=== PATIENT | female | born 1960 | race African-American/Black ===

== ENCOUNTER 2017-11-05 12:20 | Day surgery (SDC) | payer OTHER ==
[2017-11-05] MEDS ORDERED: methylPREDNISolone NA SUCC 40 MG/1 ML VIAL IVPB ONE (14:15)
[2017-11-05] MEDS ORDERED: EPINEPHrine/PF 1 MG/1 ML (1:1,000) AMPULE SQ PRN (14:23)
[2017-11-05] MEDS ORDERED: OMALIZUMAB 150 MG/VIAL ML SQ ONE (14:30)
[2017-11-05 17:21] VITALS: TEMP 98.7
[2017-11-05 17:22] VITALS: BP 135/75; PULSE 72
== END 2017-11-05 19:06 | disposition home or self-care (01) ==
LOC: J7W 12:20 → JINFUSION 12:20
PROVIDERS: ATTEND Internal Medicine
PROC: 3E013GC Introduction of Other Therapeutic Substance into Subcutaneous Tissue, Percutaneous Approach (ICD-10-PCS; principal; 2017-11-05)
DX: J45.50 Severe persistent asthma, uncomplicated (principal)
CPT/HCPCS: 96372; J2357

== ENCOUNTER 2017-12-02 12:05 | Day surgery (SDC) | payer OTHER ==
[2017-12-02] MEDS ORDERED: EPINEPHrine 1:1,000 0.3 MG/0.3 ML SYR IM PRN (12:42)
[2017-12-02] MEDS ORDERED: OMALIZUMAB 150 MG/VIAL ML SQ ONE (12:45)
[2017-12-02] MEDS ORDERED: methylPREDNISolone NA SUCC 40 MG/1 ML VIAL IVPB ONE (12:45)
[2017-12-02] MEDS ORDERED: EPINEPHrine/PF 1 MG/1 ML (1:1,000) AMPULE ONE (14:16)
[2017-12-02 17:21] VITALS: BP 139/77; PULSE 74; TEMP 99
== END 2017-12-02 15:00 | disposition home or self-care (01) ==
LOC: JINFUSION 12:05 → J7W 12:06 → JINFUSION 15:00
PROVIDERS: ATTEND Internal Medicine
PROC: 3E013GC Introduction of Other Therapeutic Substance into Subcutaneous Tissue, Percutaneous Approach (ICD-10-PCS; principal; 2017-12-02)
DX: J45.50 Severe persistent asthma, uncomplicated (principal)
CPT/HCPCS: 96372; J2357

== ENCOUNTER 2017-12-16 12:19 | Day surgery (SDC) | payer OTHER ==
[2017-12-16] MEDS ORDERED: EPINEPHrine/PF 1 MG/1 ML (1:1,000) AMPULE SQ PRN (12:58)
[2017-12-16] MEDS ORDERED: methylPREDNISolone NA SUCC 40 MG/1 ML VIAL IVPUSH ONE (13:00)
[2017-12-16] MEDS ORDERED: OMALIZUMAB 150 MG/VIAL ML SQ ONE (13:00)
[2017-12-16] MEDS ORDERED: FAMOTIDINE 20 MG/50 ML IVPB 20 MG/50 ML MG IVPB ONE (14:00)
[2017-12-16 14:42] VITALS: PULSE 77
[2017-12-16 15:13] VITALS: BP 132/70; TEMP 98.7
== END 2017-12-16 15:15 | disposition home or self-care (01) ==
LOC: JINFUSION 12:19 → J7W 12:20 → JINFUSION 15:15
PROVIDERS: ATTEND Internal Medicine
PROC: 3E013GC Introduction of Other Therapeutic Substance into Subcutaneous Tissue, Percutaneous Approach (ICD-10-PCS; principal; 2017-12-16)
DX: J45.50 Severe persistent asthma, uncomplicated (principal)
CPT/HCPCS: 96372; J2357

== ENCOUNTER 2018-01-05 11:16 | Day surgery (SDC) | payer OTHER ==
[2018-01-05] MEDS ORDERED: IBUPROFEN 200 MG TABLET PO PRN (13:23)
[2018-01-05] MEDS ORDERED: methylPREDNISolone NA SUCC 40 MG/1 ML VIAL IVPUSH ONE (13:30)
[2018-01-05] MEDS ORDERED: EPINEPHrine/PF 1 MG/1 ML (1:1,000) AMPULE SQ PRN (13:46)
[2018-01-05] MEDS ORDERED: OMALIZUMAB 150 MG/VIAL ML SQ ONE (14:00)
[2018-01-05 16:19] VITALS: TEMP 98.1
[2018-01-05 16:23] VITALS: BP 98/62; PULSE 95
== END 2018-01-05 15:15 | disposition home or self-care (01) ==
LOC: JINFUSION 11:16 → J7W 12:35 → JINFUSION 15:15
PROVIDERS: ATTEND Internal Medicine
PROC: 3E013GC Introduction of Other Therapeutic Substance into Subcutaneous Tissue, Percutaneous Approach (ICD-10-PCS; principal; 2018-01-05)
PROC: 3E0333Z Introduction of Anti-inflammatory into Peripheral Vein, Percutaneous Approach (ICD-10-PCS; 2018-01-05)
PROC: 3E033GC Introduction of Other Therapeutic Substance into Peripheral Vein, Percutaneous Approach (ICD-10-PCS; 2018-01-05)
DX: J45.50 Severe persistent asthma, uncomplicated (principal)
CPT/HCPCS: 96372; 96374; 96375; J2357

== ENCOUNTER 2018-01-19 13:16 | Day surgery (SDC) | payer OTHER ==
[2018-01-19] MEDS ORDERED: OMALIZUMAB 150 MG/VIAL ML SQ ONE (14:00)
[2018-01-19] MEDS ORDERED: EPINEPHrine/PF 1 MG/1 ML (1:1,000) AMPULE SQ PRN (14:02)
[2018-01-19] MEDS ORDERED: methylPREDNISolone NA SUCC 40 MG/1 ML VIAL IVPUSH ONE (14:15)
[2018-01-19 15:20] VITALS: BP 140/74; PULSE 76; TEMP 97.6
== END 2018-01-19 15:45 | disposition home or self-care (01) ==
LOC: JINFUSION 13:16 → J7W 13:18 → JINFUSION 15:45
PROVIDERS: ATTEND Internal Medicine
PROC: 3E033GC Introduction of Other Therapeutic Substance into Peripheral Vein, Percutaneous Approach (ICD-10-PCS; principal; 2018-01-19)
PROC: 3E013GC Introduction of Other Therapeutic Substance into Subcutaneous Tissue, Percutaneous Approach (ICD-10-PCS; 2018-01-19)
DX: J45.50 Severe persistent asthma, uncomplicated (principal)
CPT/HCPCS: 96360; 96365; 96372; J2357

== ENCOUNTER 2018-02-02 12:22 | Day surgery (SDC) | payer OTHER ==
[2018-02-02] MEDS ORDERED: EPINEPHrine/PF 1 MG/1 ML (1:1,000) AMPULE SQ PRN (12:44)
[2018-02-02] MEDS ORDERED: methylPREDNISolone NA SUCC 40 MG/1 ML VIAL IVPB ONE (12:45)
[2018-02-02] MEDS ORDERED: OMALIZUMAB 150 MG/VIAL ML SQ ONE (12:45)
[2018-02-02 15:02] VITALS: BP 127/79; PULSE 86; TEMP 98
== END 2018-02-02 15:05 | disposition home or self-care (01) ==
LOC: J7W 12:22 → JINFUSION 12:22
PROVIDERS: ATTEND Internal Medicine
PROC: 3E013GC Introduction of Other Therapeutic Substance into Subcutaneous Tissue, Percutaneous Approach (ICD-10-PCS; principal; 2018-02-02)
DX: J45.50 Severe persistent asthma, uncomplicated (principal)
CPT/HCPCS: 96372; J2357

== ENCOUNTER 2018-02-24 12:13 | Day surgery (SDC) | payer OTHER ==
[2018-02-24] MEDS ORDERED: EPINEPHrine/PF 1 MG/1 ML (1:1,000) AMPULE SQ PRN (12:45)
[2018-02-24] MEDS ORDERED: methylPREDNISolone NA SUCC 40 MG/1 ML VIAL IVPB ONE (12:45)
[2018-02-24] MEDS ORDERED: OMALIZUMAB 150 MG/VIAL ML SQ ONE (13:15)
[2018-02-24 19:06] VITALS: BP 122/75; PULSE 72; TEMP 98.7
== END 2018-02-24 15:10 | disposition home or self-care (01) ==
LOC: JINFUSION 12:13 → J7W 12:14 → JINFUSION 15:10
PROVIDERS: ATTEND Internal Medicine
PROC: 3E013GC Introduction of Other Therapeutic Substance into Subcutaneous Tissue, Percutaneous Approach (ICD-10-PCS; principal; 2018-02-24)
DX: J45.50 Severe persistent asthma, uncomplicated (principal)
CPT/HCPCS: 96372; J2357

== ENCOUNTER 2018-03-12 12:58 | Day surgery (SDC) | payer OTHER ==
[2018-03-12] MEDS ORDERED: EPINEPHrine 1:1,000 - 30 MG/30 ML VIAL SQ PRN (13:25)
[2018-03-12] MEDS ORDERED: methylPREDNISolone NA SUCC 40 MG/1 ML VIAL IVPB ONE (13:30)
[2018-03-12] MEDS ORDERED: OMALIZUMAB 150 MG/VIAL ML SQ ONE (13:30)
[2018-03-12 16:20] VITALS: TEMP 98.4
[2018-03-12 16:24] VITALS: BP 111/66; PULSE 73
== END 2018-03-12 15:40 | disposition home or self-care (01) ==
LOC: JINFUSION 12:58 → J7W 12:59 → JINFUSION 15:40
PROVIDERS: ATTEND Internal Medicine
PROC: 3E013GC Introduction of Other Therapeutic Substance into Subcutaneous Tissue, Percutaneous Approach (ICD-10-PCS; principal; 2018-03-12)
DX: J45.50 Severe persistent asthma, uncomplicated (principal)
CPT/HCPCS: 96365; 96372; J2357

== ENCOUNTER 2018-03-26 12:33 | Day surgery (SDC) | payer OTHER ==
[2018-03-26] MEDS ORDERED: OMALIZUMAB 150 MG/VIAL ML SQ ONE (13:30)
[2018-03-26] MEDS ORDERED: EPINEPHrine/PF 1 MG/1 ML (1:1,000) AMPULE SQ SCH (13:30)
[2018-03-26] MEDS ORDERED: methylPREDNISolone NA SUCC 40 MG/1 ML VIAL IVPB ONE (13:45)
[2018-03-26 15:36] VITALS: BP 126/77; PULSE 102; TEMP 97.9
== END 2018-03-26 15:39 | disposition home or self-care (01) ==
LOC: JINFUSION 12:33 → J7W 12:38 → JINFUSION 15:39
PROVIDERS: ATTEND Internal Medicine
PROC: 3E013GC Introduction of Other Therapeutic Substance into Subcutaneous Tissue, Percutaneous Approach (ICD-10-PCS; principal; 2018-03-26)
DX: J45.50 Severe persistent asthma, uncomplicated (principal)
CPT/HCPCS: 96372; J2357

== ENCOUNTER 2018-04-08 11:55 | Day surgery (SDC) | payer OTHER ==
[2018-04-08] MEDS ORDERED: methylPREDNISolone NA SUCC 40 MG/1 ML VIAL IVPB ONE (13:30)
[2018-04-08] MEDS ORDERED: OMALIZUMAB 150 MG/VIAL ML SQ ONE (13:30)
[2018-04-08] MEDS ORDERED: EPINEPHrine/PF 1 MG/1 ML (1:1,000) AMPULE SQ PRN (13:30)
[2018-04-08 17:49] VITALS: BP 151/80; PULSE 71; TEMP 97.8
== END 2018-04-08 15:15 | disposition home or self-care (01) ==
LOC: JINFUSION 11:55 → J7W 11:56 → JINFUSION 15:15
PROVIDERS: ATTEND Internal Medicine
PROC: 3E013GC Introduction of Other Therapeutic Substance into Subcutaneous Tissue, Percutaneous Approach (ICD-10-PCS; principal; 2018-04-08)
DX: J45.50 Severe persistent asthma, uncomplicated (principal)
CPT/HCPCS: 96372; J2357

== ENCOUNTER 2018-04-22 12:24 | Day surgery (SDC) | payer OTHER ==
[2018-04-22] MEDS ORDERED: EPINEPHrine 1:1,000 0.3 MG/0.3 ML SYR IM PRN (12:50)
[2018-04-22] MEDS ORDERED: OMALIZUMAB 150 MG/VIAL ML SQ ONE (13:00)
[2018-04-22] MEDS ORDERED: methylPREDNISolone NA SUCC 40 MG/1 ML VIAL IVPB ONE (13:00)
[2018-04-22 16:57] VITALS: TEMP 97.8
[2018-04-22 17:00] VITALS: BP 141/78; PULSE 88
== END 2018-04-22 14:00 | disposition home or self-care (01) ==
LOC: J7W 12:24 → JINFUSION 12:24
PROVIDERS: ATTEND Internal Medicine
PROC: 3E013GC Introduction of Other Therapeutic Substance into Subcutaneous Tissue, Percutaneous Approach (ICD-10-PCS; principal; 2018-04-22)
DX: J45.50 Severe persistent asthma, uncomplicated (principal)
CPT/HCPCS: 96372; J2357

== ENCOUNTER 2018-05-28 12:40 | Day surgery (SDC) | payer OTHER ==
[2018-05-28] MEDS ORDERED: EPINEPHrine/PF 1 MG/1 ML (1:1,000) AMPULE SQ SCH (13:15)
[2018-05-28] MEDS ORDERED: EPINEPHrine/PF 1 MG/1 ML (1:1,000) AMPULE SQ PRN (13:35)
[2018-05-28] MEDS ORDERED: methylPREDNISolone NA SUCC 40 MG/1 ML VIAL IVPB ONE (14:00)
[2018-05-28] MEDS ORDERED: OMALIZUMAB 150 MG/VIAL ML SQ SCH (14:00)
[2018-05-28 15:54] VITALS: TEMP 98.6
[2018-05-28 16:39] VITALS: BP 136/93; PULSE 93
== END 2018-05-28 16:10 | disposition home or self-care (01) ==
LOC: JINFUSION 12:40 → J7W 12:42 → JINFUSION 16:10
PROVIDERS: ATTEND Internal Medicine
PROC: 3E033GC Introduction of Other Therapeutic Substance into Peripheral Vein, Percutaneous Approach (ICD-10-PCS; principal; 2018-05-28)
PROC: 3E013GC Introduction of Other Therapeutic Substance into Subcutaneous Tissue, Percutaneous Approach (ICD-10-PCS; 2018-05-28)
DX: J45.50 Severe persistent asthma, uncomplicated (principal)
CPT/HCPCS: 96360; 96365; 96372; 96374; 96375; J2357

== ENCOUNTER 2018-06-18 10:38 | Day surgery (SDC) | payer OTHER ==
[2018-06-18] MEDS ORDERED: EPINEPHrine 1:1,000 0.3 MG/0.3 ML SYR IM PRN (11:09)
[2018-06-18] MEDS ORDERED: methylPREDNISolone NA SUCC 40 MG/1 ML VIAL IVPB ONE (11:15)
[2018-06-18] MEDS ORDERED: OMALIZUMAB 150 MG/VIAL ML SQ ONE (11:15)
[2018-06-18 12:27] VITALS: BP 147/77; PULSE 74; TEMP 98.4
== END 2018-06-18 12:30 | disposition home or self-care (01) ==
LOC: JINFUSION 10:38 → J7W 10:45 → JINFUSION 12:30
PROVIDERS: ATTEND Internal Medicine
PROC: 3E013GC Introduction of Other Therapeutic Substance into Subcutaneous Tissue, Percutaneous Approach (ICD-10-PCS; principal; 2018-06-18)
DX: J45.50 Severe persistent asthma, uncomplicated (principal)
CPT/HCPCS: 96372; J2357

== ENCOUNTER 2018-07-02 13:44 | Day surgery (SDC) | payer OTHER ==
[2018-07-02] MEDS ORDERED: EPINEPHrine/PF 1 MG/1 ML (1:1,000) AMPULE SQ ONE (15:00)
[2018-07-02] MEDS ORDERED: OMALIZUMAB 150 MG/VIAL ML SQ ONE (15:00)
[2018-07-02] MEDS ORDERED: methylPREDNISolone NA SUCC 40 MG/1 ML VIAL IVPB ONE (15:00)
[2018-07-02 15:36] VITALS: TEMP 97.3
[2018-07-02 15:56] VITALS: BP 128/75; PULSE 73
== END 2018-07-02 15:56 | disposition home or self-care (01) ==
LOC: JINFUSION 13:44 → J7W 13:44 → JINFUSION 15:56
PROVIDERS: ATTEND Internal Medicine
PROC: 3E013GC Introduction of Other Therapeutic Substance into Subcutaneous Tissue, Percutaneous Approach (ICD-10-PCS; principal; 2018-07-02)
PROC: 3E033GC Introduction of Other Therapeutic Substance into Peripheral Vein, Percutaneous Approach (ICD-10-PCS; 2018-07-02)
DX: J45.50 Severe persistent asthma, uncomplicated (principal)
CPT/HCPCS: 96365; 96372; 96374; J2357

== ENCOUNTER 2018-08-27 11:16 | Day surgery (SDC) | payer OTHER ==
[2018-08-27] MEDS ORDERED: EPINEPHrine 1:1,000 0.3 MG/0.3 ML SYR IM PRN (12:15)
[2018-08-27] MEDS ORDERED: methylPREDNISolone NA SUCC 40 MG/1 ML VIAL IVPB ONE (12:15)
[2018-08-27] MEDS ORDERED: OMALIZUMAB 150 MG/VIAL ML SQ ONE (12:20)
[2018-08-27 16:31] VITALS: BP 131/79; PULSE 76; TEMP 98.3
== END 2018-08-27 14:30 | disposition home or self-care (01) ==
LOC: JINFUSION 11:16 → J7W 11:17 → JINFUSION 14:30
PROVIDERS: ATTEND Internal Medicine
PROC: 3E033GC Introduction of Other Therapeutic Substance into Peripheral Vein, Percutaneous Approach (ICD-10-PCS; principal; 2018-08-27)
PROC: 3E013GC Introduction of Other Therapeutic Substance into Subcutaneous Tissue, Percutaneous Approach (ICD-10-PCS; 2018-08-27)
DX: J45.50 Severe persistent asthma, uncomplicated (principal)
CPT/HCPCS: 96365; 96372; J2357

== ENCOUNTER 2018-09-10 10:29 | Day surgery (SDC) | payer OTHER ==
[2018-09-10] MEDS ORDERED: EPINEPHrine 1:1,000 0.3 MG/0.3 ML SYR IM PRN (11:54)
[2018-09-10] MEDS ORDERED: OMALIZUMAB 150 MG/VIAL ML SQ ONE (12:00)
[2018-09-10] MEDS ORDERED: methylPREDNISolone NA SUCC 40 MG/1 ML VIAL IVPB ONE (12:00)
[2018-09-10] MEDS ORDERED: methylPREDNISolone NA SUCC 125 MG/2 ML VIAL ONE (14:19)
[2018-09-10] MEDS ORDERED: ACETAMINOPHEN 325 MG TABLET (FP) ONE (14:20)
[2018-09-10] MEDS ORDERED: PANTOPRAZOLE 40 MG TABLET (FP) PO ONE (14:30)
[2018-09-10] MEDS ORDERED: methylPREDNISolone NA SUCC 125 MG/2 ML VIAL IVPB ONE (14:30)
[2018-09-10 16:41] VITALS: BP 136/74; PULSE 80; TEMP 98
== END 2018-09-10 15:15 | disposition home or self-care (01) ==
LOC: JINFUSION 10:29 → J7W 10:37 → JINFUSION 15:15
PROVIDERS: ATTEND Internal Medicine
PROC: 3E033GC Introduction of Other Therapeutic Substance into Peripheral Vein, Percutaneous Approach (ICD-10-PCS; principal; 2018-09-10)
DX: J45.50 Severe persistent asthma, uncomplicated (principal); Z53.8 Procedure and treatment not carried out for other reasons
CPT/HCPCS: 96365; 96372

== ENCOUNTER 2018-11-19 12:20 | Day surgery (SDC) | payer OTHER ==
[~2018-11-19 12:20] MED LIST: EPINEPHrine/PF 1 MG/1 ML (1:1,000) AMPULE SQ PRN; OMALIZUMAB 150 MG/VIAL ML SQ ONE; methylPREDNISolone NA SUCC 40 MG/1 ML VIAL IVPB ONE
[2018-11-19 15:29] VITALS: TEMP 98.5
[2018-11-19 15:35] VITALS: BP 153/61; PULSE 72
== END 2018-11-19 15:00 | disposition home or self-care (01) ==
LOC: JINFUSION 12:20 → J7W 12:23 → JINFUSION 15:00
PROVIDERS: ATTEND Internal Medicine
PROC: 3E013GC Introduction of Other Therapeutic Substance into Subcutaneous Tissue, Percutaneous Approach (ICD-10-PCS; principal; 2018-11-19)
PROC: 3E033GC Introduction of Other Therapeutic Substance into Peripheral Vein, Percutaneous Approach (ICD-10-PCS; 2018-11-19)
PROC: 3E033GC Introduction of Other Therapeutic Substance into Peripheral Vein, Percutaneous Approach (ICD-10-PCS; 2018-11-19)
DX: J45.50 Severe persistent asthma, uncomplicated (principal)
CPT/HCPCS: 96360; 96365; 96368; 96372; J2357

== ENCOUNTER 2018-12-03 11:55 | Day surgery (SDC) | payer OTHER ==
[2018-12-03] MEDS ORDERED: OMALIZUMAB 150 MG/VIAL ML SQ SCH (13:45)
[2018-12-03] MEDS ORDERED: OMALIZUMAB 150 MG/VIAL ML SQ ONE (13:45)
[2018-12-03] MEDS ORDERED: methylPREDNISolone NA SUCC 40 MG/1 ML VIAL IVPB ONE (13:45)
[2018-12-03 15:35] VITALS: TEMP 98.5
[2018-12-03 16:55] VITALS: BP 135/72; PULSE 71
== END 2018-12-03 15:15 | disposition home or self-care (01) ==
LOC: JINFUSION 11:55 → J7W 11:56 → JINFUSION 15:15
PROVIDERS: ATTEND Internal Medicine
PROC: 3E013GC Introduction of Other Therapeutic Substance into Subcutaneous Tissue, Percutaneous Approach (ICD-10-PCS; principal; 2018-12-03)
DX: J45.50 Severe persistent asthma, uncomplicated (principal)
CPT/HCPCS: 96372; J2357

== ENCOUNTER 2018-12-17 11:54 | Day surgery (SDC) | payer OTHER ==
[2018-12-17] MEDS ORDERED: methylPREDNISolone NA SUCC 40 MG/1 ML VIAL IVPB ONE ×2 (13:00→13:15)
[2018-12-17] MEDS ORDERED: EPINEPHrine/PF 1 MG/1 ML (1:1,000) AMPULE SQ PRN (13:05)
[2018-12-17] MEDS ORDERED: OMALIZUMAB SQ ONE (13:15)
[2018-12-17 14:40] VITALS: TEMP 98.1
[2018-12-17 14:54] VITALS: BP 142/79; PULSE 76
== END 2018-12-17 14:10 | disposition home or self-care (01) ==
LOC: JINFUSION 11:54 → J7W 11:55 → JINFUSION 14:10
PROVIDERS: ATTEND Internal Medicine
PROC: 3E013GC Introduction of Other Therapeutic Substance into Subcutaneous Tissue, Percutaneous Approach (ICD-10-PCS; principal; 2018-12-17)
DX: J45.50 Severe persistent asthma, uncomplicated (principal)
CPT/HCPCS: 96372; J2357

== ENCOUNTER 2019-01-14 12:23 | Day surgery (SDC) | payer OTHER ==
[2019-01-14] MEDS ORDERED: EPINEPHrine 1:1,000 0.3 MG/0.3 ML SYR IM PRN (12:47)
[2019-01-14] MEDS ORDERED: OMALIZUMAB 150 MG/VIAL ML SQ ONE (13:00)
[2019-01-14] MEDS ORDERED: methylPREDNISolone NA SUCC 40 MG/1 ML VIAL IVPB ONE (13:00)
[2019-01-14] MEDS ORDERED: EPINEPHrine/PF 1 MG/1 ML (1:1,000) AMPULE IM PRN (13:02)
[2019-01-14 14:39] VITALS: BP 142/85; PULSE 76; TEMP 97.7
== END 2019-01-14 14:15 | disposition home or self-care (01) ==
LOC: JINFUSION 12:23 → J7W 12:26 → JINFUSION 14:15
PROVIDERS: ATTEND Internal Medicine
PROC: 3E0333Z Introduction of Anti-inflammatory into Peripheral Vein, Percutaneous Approach (ICD-10-PCS; principal; 2019-01-14)
PROC: 3E033GC Introduction of Other Therapeutic Substance into Peripheral Vein, Percutaneous Approach (ICD-10-PCS; 2019-01-14)
PROC: 3E013GC Introduction of Other Therapeutic Substance into Subcutaneous Tissue, Percutaneous Approach (ICD-10-PCS; 2019-01-14)
DX: J45.50 Severe persistent asthma, uncomplicated (principal)
CPT/HCPCS: 96365; 96372; 96374; 96375; J2357

== ENCOUNTER 2019-01-28 11:55 | Day surgery (SDC) | payer OTHER ==
[2019-01-28] MEDS ORDERED: EPINEPHrine/PF 1 MG/1 ML (1:1,000) AMPULE SQ PRN (13:20)
[2019-01-28] MEDS ORDERED: OMALIZUMAB SQ ONE (14:00)
[2019-01-28] MEDS ORDERED: methylPREDNISolone NA SUCC 40 MG/1 ML VIAL IVPUSH ONE (14:00)
[2019-01-28 15:10] VITALS: BP 136/76; PULSE 85; TEMP 98.9
== END 2019-01-28 14:40 | disposition home or self-care (01) ==
LOC: JINFUSION 11:55 → J7W 12:52 → JINFUSION 14:40
PROVIDERS: ATTEND Internal Medicine
PROC: 3E013GC Introduction of Other Therapeutic Substance into Subcutaneous Tissue, Percutaneous Approach (ICD-10-PCS; principal; 2019-01-28)
DX: J45.50 Severe persistent asthma, uncomplicated (principal)
CPT/HCPCS: 96372; J2357

== ENCOUNTER 2019-03-04 11:16 | Day surgery (SDC) | payer OTHER ==
[2019-03-04] MEDS ORDERED: EPINEPHrine/PF 1 MG/1 ML (1:1,000) AMPULE SQ SCH (12:00)
[2019-03-04] MEDS ORDERED: OMALIZUMAB SQ ONE (12:00)
[2019-03-04] MEDS ORDERED: methylPREDNISolone NA SUCC 40 MG/1 ML VIAL IVPUSH ONE (12:00)
[2019-03-04 16:08] VITALS: BP 124/69; PULSE 84; TEMP 98.4
== END 2019-03-04 14:10 | disposition home or self-care (01) ==
LOC: JINFUSION 11:16 → J7W 11:18 → JINFUSION 14:10
PROVIDERS: ATTEND Internal Medicine
PROC: 3E013GC Introduction of Other Therapeutic Substance into Subcutaneous Tissue, Percutaneous Approach (ICD-10-PCS; principal; 2019-03-04)
DX: J45.50 Severe persistent asthma, uncomplicated (principal)
CPT/HCPCS: 96372; J2357

== ENCOUNTER 2019-03-25 12:26 | Day surgery (SDC) | payer OTHER ==
[2019-03-25] MEDS ORDERED: EPINEPHrine/PF 1 MG/1 ML (1:1,000) AMPULE SQ PRN (13:36)
[2019-03-25] MEDS ORDERED: OMALIZUMAB 150 MG/ML SQ ONE (14:00)
[2019-03-25] MEDS ORDERED: methylPREDNISolone NA SUCC 40 MG/1 ML VIAL IVPB ONE (14:00)
[2019-03-25 15:41] VITALS: BP 118/64; PULSE 71; TEMP 98.2
== END 2019-03-25 15:15 | disposition home or self-care (01) ==
LOC: JINFUSION 12:26 → J7W 12:33 → JINFUSION 15:15
PROVIDERS: ATTEND Internal Medicine
PROC: 3E013GC Introduction of Other Therapeutic Substance into Subcutaneous Tissue, Percutaneous Approach (ICD-10-PCS; principal; 2019-03-25)
DX: J45.50 Severe persistent asthma, uncomplicated (principal)
CPT/HCPCS: 96372; J2357

== ENCOUNTER 2019-04-08 12:48 | Day surgery (SDC) | payer OTHER ==
[2019-04-08] MEDS ORDERED: EPINEPHrine 1:1,000 0.3 MG/0.3 ML SYR IM PRN (13:09)
[2019-04-08] MEDS ORDERED: methylPREDNISolone NA SUCC 40 MG/1 ML VIAL IVPUSH ONE (13:15)
[2019-04-08] MEDS ORDERED: OMALIZUMAB SQ ONE (13:15)
[2019-04-08 15:50] VITALS: BP 149/87; TEMP 98.6
[2019-04-08 15:51] VITALS: PULSE 95
== END 2019-04-08 14:40 | disposition home or self-care (01) ==
LOC: JINFUSION 12:48 → J7W 12:49 → JINFUSION 14:40
PROVIDERS: ATTEND Internal Medicine
DX: J45.50 Severe persistent asthma, uncomplicated (principal)
CPT/HCPCS: 96372; J2357

== ENCOUNTER 2019-04-22 12:00 | Day surgery (SDC) | payer OTHER ==
[2019-04-22] MEDS ORDERED: EPINEPHrine/PF 1 MG/1 ML (1:1,000) AMPULE SQ PRN (12:54)
[2019-04-22] MEDS ORDERED: OMALIZUMAB 150 MG/VIAL ML SQ ONE (13:00)
[2019-04-22] MEDS ORDERED: methylPREDNISolone NA SUCC 40 MG/1 ML VIAL IVPB ONE (13:00)
[2019-04-22 14:47] VITALS: BP 138/77; PULSE 101; TEMP 99.2
== END 2019-04-22 14:55 | disposition home or self-care (01) ==
LOC: JINFUSION 12:00 → J7W 12:01 → JINFUSION 14:55
PROVIDERS: ATTEND Internal Medicine
PROC: 3E033GC Introduction of Other Therapeutic Substance into Peripheral Vein, Percutaneous Approach (ICD-10-PCS; principal; 2019-04-22)
DX: J45.50 Severe persistent asthma, uncomplicated (principal)
CPT/HCPCS: 96365; J2357

== ENCOUNTER 2019-09-22 12:11 | Day surgery (SDC) | payer OTHER ==
[2019-09-22] MEDS ORDERED: EPINEPHrine/PF 1 MG/1 ML (1:1,000) AMPULE SQ PRN (12:38)
[2019-09-22] MEDS ORDERED: OMALIZUMAB SQ ONE (12:45)
[2019-09-22] MEDS ORDERED: methylPREDNISolone NA SUCC 40 MG/1 ML VIAL IVPB ONE (12:45)
[2019-09-22 14:17] VITALS: BP 101/67; PULSE 72; TEMP 98.7
== END 2019-09-22 14:00 | disposition home or self-care (01) ==
LOC: JINFUSION 12:11
PROVIDERS: ATTEND Internal Medicine
PROC: 3E013GC Introduction of Other Therapeutic Substance into Subcutaneous Tissue, Percutaneous Approach (ICD-10-PCS; principal; 2019-09-22)
DX: J45.50 Severe persistent asthma, uncomplicated (principal)
CPT/HCPCS: 96372; J2357

== ENCOUNTER 2019-10-13 10:45 | Day surgery (SDC) | payer OTHER ==
[2019-10-13] MEDS ORDERED: methylPREDNISolone NA SUCC 40 MG/1 ML VIAL IVPUSH ONE (12:00)
[2019-10-13] MEDS ORDERED: OMALIZUMAB 150 MG/VIAL ML SQ ONE (12:00)
[2019-10-13] MEDS ORDERED: EPINEPHrine/PF 1 MG/1 ML (1:1,000) AMPULE SQ ONE (12:00)
[2019-10-13 14:54] VITALS: TEMP 98.6
[2019-10-13 15:00] VITALS: BP 143/69; PULSE 68
== END 2019-10-13 14:40 | disposition home or self-care (01) ==
LOC: JINFUSION 10:45 → J7W 10:45 → JINFUSION 14:40
PROVIDERS: ATTEND Internal Medicine
PROC: 3E013GC Introduction of Other Therapeutic Substance into Subcutaneous Tissue, Percutaneous Approach (ICD-10-PCS; principal; 2019-10-13)
PROC: 3E033GC Introduction of Other Therapeutic Substance into Peripheral Vein, Percutaneous Approach (ICD-10-PCS; 2019-10-13)
DX: J45.50 Severe persistent asthma, uncomplicated (principal)
CPT/HCPCS: 96365; 96372; J2357